=== PATIENT | female | born 1990 | race Hispanic/Latino ===

== ENCOUNTER 2023-03-11 17:06 | Emergency (ER) | payer MEDICAID ==
[~2023-03-11] VITALS: Ht 160 cm; Wt 99.8 kg
[2023-03-11] MEDS ORDERED: KETOROLAC 60 MG VIAL (30MG/ML) IM ONE (18:00)
[2023-03-11] MEDS ORDERED: CYCL5TAB PO (18:44)
[2023-03-11 19:01] VITALS: BP 140/73
== END 2023-03-11 19:05 | disposition home or self-care (01) ==
LOC: EEVIPCON 17:06 → EDH 17:06
DX: R51.9 Headache, unspecified (principal); Z90.49 Acquired absence of other specified parts of digestive tract; Y04.8XXA Assault by other bodily force, initial encounter; Y93.9 Activity, unspecified; Y92.89 Other specified places as the place of occurrence of the external cause; Y99.8 Other external cause status
CPT/HCPCS: 99283; 96372; J1885